=== PATIENT | male | born 1960 | race Caucasian/White ===

== ENCOUNTER 2016-12-17 12:55 | Emergency (ER) | payer MEDICAID ==
[~2016-12-17] VITALS: Ht 185.4 cm; Wt 72.7 kg
[2016-12-17 13:41] LABS: BASOPHILS # (AUTO) 0.03 K/uL (0.00-0.20); BASOPHILS % (AUTO) 0.7 % (0.0-2.0); EOSINOPHILS # (AUTO) 0.11 K/uL (0.00-0.70); EOSINOPHILS % (AUTO) 2.56 % (1.0-6.0); HEMATOCRIT 41.9 % (41-53); LYMPHOCYTES # (AUTO) 1.5 K/uL (1.0-4.8); LYMPHOCYTES % (AUTO) 35.7 % (22.0-44.0); MEAN CORPUSCULAR HEMOGLOBIN 29.1 pg (26.0-34.0); MEAN CORPUSCULAR HGB CONC 33.5 G/dL (31.0-37.0); MEAN CORPUSCULAR VOLUME 87 fL (80-100); MONOCYTES # (AUTO) 0.4 K/uL (0.1-1.0); MONOCYTES % (AUTO) 9.5 % (2.0-9.0); NEUTROPHILS # (AUTO) 2.2 K/uL (1.8-7.7); NEUTROPHILS % (AUTO) 51.6 % (40.0-70.0); PLATELET COUNT (AUTO) 172 K/uL (150-450); RED BLOOD CELL COUNT(AUTO) 4.82 MIL/uL (4.50-5.90); RED CELL DISTRIBUTION WIDTH 16.1 % (11.5-14.5); WHITE BLOOD COUNT (AUTO) 4.2 K/uL (4.5-11.0)
[2016-12-17 13:55] LABS: ANION GAP 11 mmol/L (8-16); CALCIUM, TOTAL 8.9 mg/dL (8.8-10.5); CARBON DIOXIDE 26 mmol/L (22-29); CHLORIDE 106 mmol/L (98-107); CREATININE 0.88 mg/dL (0.60-1.30); GLOMERULAR FILTR. RATE CALC > 60 mL/min (>60); POTASSIUM 3.7 mmol/L (3.5-5.1); SODIUM SERUM 143 mmol/L (136-145); UREA NITROGEN, BLOOD 16 mg/dL (7-18)
[2016-12-17 14:01] LABS: ALANINE AMINOTRANSFERASE 19 U/L (12-78); ALBUMIN 3.8 g/dL (3.4-5.0); ASPARTATE AMINOTRANSFERASE 23 U/L (15-37); BILIRUBIN,TOTAL 0.5 mg/dL (0.1-1.0); TOTAL PROTEIN, SERUM 7.4 g/dL (6.4-8.2)
[2016-12-17] MEDS ORDERED: ONDANSETRON HCL 4 MG TABLET PO ONE (14:30)
[2016-12-17] MEDS ORDERED: CloNIDine HCL 0.2 MG TABLET PO ONE (14:30)
[2016-12-17 17:17] VITALS: BP 127/88
== END 2016-12-17 17:32 | disposition home or self-care (01) ==
LOC: EMS 12:56 → EEVIPCON 12:56 → EMS 17:32
DX: F32.9 Major depressive disorder, single episode, unspecified (principal); I10 Essential (primary) hypertension; F11.90 Opioid use, unspecified, uncomplicated; F15.90 Other stimulant use, unspecified, uncomplicated; F17.210 Nicotine dependence, cigarettes, uncomplicated
CPT/HCPCS: 36415; 80053; 85025; 99284; G0480; Q0162

== ENCOUNTER 2016-12-24 15:57 | Emergency (ER) | payer MEDICAID ==
[~2016-12-24] VITALS: Ht 185.4 cm; Wt 75.0 kg
[2016-12-24] MEDS ORDERED: BUPR1FIL SL (16:29)
[2016-12-24 20:03] VITALS: BP 129/77
== END 2016-12-24 20:33 | disposition home or self-care (01) ==
LOC: EMS 16:00
DX: F11.10 Opioid abuse, uncomplicated (principal); F15.10 Other stimulant abuse, uncomplicated; I10 Essential (primary) hypertension; F17.210 Nicotine dependence, cigarettes, uncomplicated; Z59.0 Homelessness; Z86.14 Personal history of Methicillin resistant Staphylococcus aureus infection
CPT/HCPCS: 36415; 99283; 99406; G0480

== ENCOUNTER 2016-12-31 19:01 | Emergency (ER) | payer MEDICAID ==
[~2016-12-31 19:01] MED LIST: BUPR1FIL SL
== END 2016-12-31 20:32 | disposition left against medical advice (07) ==
LOC: EMS 19:04
DX: R69 Illness, unspecified (principal); I10 Essential (primary) hypertension; F17.210 Nicotine dependence, cigarettes, uncomplicated; F11.90 Opioid use, unspecified, uncomplicated; F19.90 Other psychoactive substance use, unspecified, uncomplicated; Z53.21 Procedure and treatment not carried out due to patient leaving prior to being seen by health care provider

== ENCOUNTER 2017-01-09 22:06 | Inpatient (IN) | payer MEDICAID ==
[~2017-01-09] VITALS: Ht 182.9 cm; Wt 72.6 kg
[2017-01-10 00:43] LABS: BASOPHILS % (AUTO) 0.2 % (0.0-2.0); EOSINOPHILS % (AUTO) 0.6 % (1.0-6.0); HEMATOCRIT 42.3 % (41-53); HEMOGLOBIN 13.5 g/dL (13.5-17.5); LYMPHOCYTES # (AUTO) 0.8 K/uL (1.0-4.8); LYMPHOCYTES % (AUTO) 16.9 % (22.0-44.0); MEAN CORPUSCULAR HEMOGLOBIN 27.9 pg (26.0-34.0); MEAN CORPUSCULAR VOLUME 87 fL (80-100); MONOCYTES # (AUTO) 0.8 K/uL (0.1-1.0); MONOCYTES % (AUTO) 16.6 % (2.0-9.0); NEUTROPHILS % (AUTO) 65.7 % (40.0-70.0); PLATELET COUNT (AUTO) 213 K/uL (150-450); RED BLOOD CELL COUNT(AUTO) 4.86 MIL/uL (4.50-5.90); RED CELL DISTRIBUTION WIDTH 15.9 % (11.5-14.5); WHITE BLOOD COUNT (AUTO) 4.6 K/uL (4.5-11.0)
[2017-01-10 01:06] LABS: ANION GAP 6 mmol/L (8-16); CALCIUM, TOTAL 8.2 mg/dL (8.8-10.5); CARBON DIOXIDE 29 mmol/L (22-29); CHLORIDE 102 mmol/L (98-107); GLOMERULAR FILTR. RATE CALC > 60 mL/min (>60); SODIUM SERUM 137 mmol/L (136-145); UREA NITROGEN, BLOOD 9 mg/dL (7-18)
[2017-01-10 01:11] LABS: ALANINE AMINOTRANSFERASE 783 U/L (12-78); ASPARTATE AMINOTRANSFERASE 800 U/L (15-37); BILIRUBIN,TOTAL 1.6 mg/dL (0.1-1.0); TOTAL PROTEIN, SERUM 6.9 g/dL (6.4-8.2)
[2017-01-10 01:15] LABS: APPEARANCE,URINE CLEAR (CLEAR); GLUCOSE, URINE (UA) NEGATIVE (NEGATIVE); KETONES,URINE NEGATIVE (NEGATIVE); LEUKOCYTE ESTERASE ,URINE NEGATIVE (NEGATIVE); OCCULT BLOOD,URINE NEGATIVE (NEGATIVE); PH,URINE 6.5 (5.0-8.0); PROTEIN,URINE NEGATIVE (NEGATIVE)
[2017-01-10 01:49] LABS: RBC,URINE None Seen /HPF (0-2); WBC,URINE None Seen /HPF (0-5)
[2017-01-10] MEDS ORDERED: ONDANSETRON HCL 4 MG/2 ML VIAL IVP PRN ×2 (03:45→13:30)
[2017-01-10] MEDS ORDERED: 0.9% SODIUM CHLORIDE 10 ML SYRINGE IVP PRN ×2 (03:45→13:30)
[2017-01-10] MEDS ORDERED: ACETAMINOPHEN 325 MG TABLET PO PRN (03:45)
[2017-01-10 05:56] VITALS: BP 127/74
[2017-01-10 07:23] VITALS: BP 108/71
[2017-01-10] MEDS ORDERED: PNEUMOCOCCAL VACCINE POLYVALENT 0.5 ML VIAL [PPSV23] IM ONE (07:45)
[2017-01-10 11:40] VITALS: BP 116/74
[2017-01-10] MEDS: HYDROCODONE/ACETAMINOPHEN 5-325 MG TABLET PO PRN ×2 (13:42→19:35)
[2017-01-10 15:08] LABS: ANION GAP 8 mmol/L (8-16); CALCIUM, TOTAL 7.9 mg/dL (8.8-10.5); CARBON DIOXIDE 29 mmol/L (22-29); CHLORIDE 101 mmol/L (98-107); CREATININE 0.92 mg/dL (0.60-1.30); GLOMERULAR FILTR. RATE CALC > 60 mL/min (>60); POTASSIUM 3.3 mmol/L (3.5-5.1); SODIUM SERUM 138 mmol/L (136-145); UREA NITROGEN, BLOOD 8 mg/dL (7-18)
[2017-01-10 16:01] VITALS: BP 121/78
[2017-01-10] MEDS: DEXTROSE 5%-0.45% SODIUM CHL 1,000 ML IV SCH ×2 (17:22→21:30)
[2017-01-10 20:09] VITALS: BP 106/66
[2017-01-11] VITALS (7 sets, daily range): BP systolic 112–139; BP diastolic 69–98
[2017-01-11] MEDS: HYDROCODONE/ACETAMINOPHEN 5-325 MG TABLET PO PRN ×4 (02:57→19:52)
[2017-01-11] MEDS: DEXTROSE 5%-0.45% SODIUM CHL 1,000 ML IV SCH ×2 (02:59→05:30)
[2017-01-11 06:28] LABS: BASOPHILS % (AUTO) 0.5 % (0.0-2.0); EOSINOPHILS % (AUTO) 0.6 % (1.0-6.0); HEMATOCRIT 42.5 % (41-53); HEMOGLOBIN 13.6 g/dL (13.5-17.5); LYMPHOCYTES # (AUTO) 0.9 K/uL (1.0-4.8); LYMPHOCYTES % (AUTO) 18.2 % (22.0-44.0); MEAN CORPUSCULAR HEMOGLOBIN 27.7 pg (26.0-34.0); MEAN CORPUSCULAR VOLUME 87 fL (80-100); MONOCYTES # (AUTO) 0.8 K/uL (0.1-1.0); MONOCYTES % (AUTO) 15.7 % (2.0-9.0); NEUTROPHILS # (AUTO) 3.3 K/uL (1.8-7.7); PLATELET COUNT (AUTO) 241 K/uL (150-450); RED BLOOD CELL COUNT(AUTO) 4.91 MIL/uL (4.50-5.90); RED CELL DISTRIBUTION WIDTH 16.4 % (11.5-14.5); WHITE BLOOD COUNT (AUTO) 5.1 K/uL (4.5-11.0)
[2017-01-11 07:08] LABS: ALANINE AMINOTRANSFERASE 904 U/L (12-78); ALBUMIN 2.9 g/dL (3.4-5.0); ANION GAP 7 mmol/L (8-16); ASPARTATE AMINOTRANSFERASE 781 U/L (15-37); BILIRUBIN,TOTAL 2.1 mg/dL (0.1-1.0); CALCIUM, TOTAL 8.4 mg/dL (8.8-10.5); CARBON DIOXIDE 28 mmol/L (22-29); CHLORIDE 105 mmol/L (98-107); CREATININE 0.85 mg/dL (0.60-1.30); GLOMERULAR FILTR. RATE CALC > 60 mL/min (>60); POTASSIUM 3.7 mmol/L (3.5-5.1); SODIUM SERUM 140 mmol/L (136-145); UREA NITROGEN, BLOOD 7 mg/dL (7-18)
[2017-01-11 10:34] LABS: ERYTHROCYTE SEDIMENTATION RATE 30 MM/HR (0-15)
[2017-01-12] MEDS: HYDROCODONE/ACETAMINOPHEN 5-325 MG TABLET PO PRN ×4 (01:43→20:35)
[2017-01-12 05:16] VITALS: BP 121/73
[2017-01-12] MEDS: DEXTROSE 5%-0.45% SODIUM CHL 1,000 ML IV SCH ×3 (05:30→21:30)
[2017-01-12 06:59] LABS: ALANINE AMINOTRANSFERASE 990 U/L (12-78); ALBUMIN 2.6 g/dL (3.4-5.0); ANION GAP 9 mmol/L (8-16); ASPARTATE AMINOTRANSFERASE 798 U/L (15-37); CARBON DIOXIDE 24 mmol/L (22-29); CHLORIDE 105 mmol/L (98-107); CREATININE 0.75 mg/dL (0.60-1.30); GLOMERULAR FILTR. RATE CALC > 60 mL/min (>60); POTASSIUM 3.8 mmol/L (3.5-5.1); SODIUM SERUM 138 mmol/L (136-145); TOTAL PROTEIN, SERUM 6.4 g/dL (6.4-8.2); UREA NITROGEN, BLOOD 6 mg/dL (7-18)
[2017-01-12 07:10] VITALS: BP 123/78
[2017-01-12 11:37] VITALS: BP 125/78
[2017-01-12 15:12] VITALS: BP 120/76
[2017-01-12 19:36] VITALS: BP 114/70
[2017-01-12 23:45] VITALS: BP 102/56
[2017-01-13] MEDS: HYDROCODONE/ACETAMINOPHEN 5-325 MG TABLET PO PRN ×2 (02:25→08:06)
[2017-01-13 04:45] VITALS: BP 110/68
[2017-01-13] MEDS: DEXTROSE 5%-0.45% SODIUM CHL 1,000 ML IV SCH ×3 (05:30→21:30)
[2017-01-13 06:57] LABS: ALBUMIN 2.6 g/dL (3.4-5.0); ANION GAP 10 mmol/L (8-16); BILIRUBIN,TOTAL 3.9 mg/dL (0.1-1.0); CALCIUM, TOTAL 8.2 mg/dL (8.8-10.5); CARBON DIOXIDE 23 mmol/L (22-29); CHLORIDE 104 mmol/L (98-107); CREATININE 0.79 mg/dL (0.60-1.30); GLOMERULAR FILTR. RATE CALC > 60 mL/min (>60); POTASSIUM 3.7 mmol/L (3.5-5.1); SODIUM SERUM 137 mmol/L (136-145); TOTAL PROTEIN, SERUM 6.7 g/dL (6.4-8.2); UREA NITROGEN, BLOOD 11 mg/dL (7-18)
[2017-01-13 07:24] VITALS: BP 110/72
[2017-01-13 08:13] LABS: ALANINE AMINOTRANSFERASE 1213 U/L (12-78); ASPARTATE AMINOTRANSFERASE 1124 U/L (15-37)
[2017-01-13 09:06] LABS: INR 1.2 (0.9-1.1); PROTHROMBIN TIME 13.1 SEC (9.4-11.6)
[2017-01-13] MEDS: OxyCODONE HCL 5 MG IR TABLET PO PRN ×3 (10:54→22:23)
[2017-01-13 11:38] VITALS: BP 127/73
[2017-01-13 15:23] VITALS: BP 100/55
[2017-01-13 20:00] VITALS: BP 105/59
[2017-01-13 23:38] VITALS: BP 107/60
[2017-01-14 04:40] VITALS: BP 106/71
[2017-01-14] MEDS: OxyCODONE HCL 5 MG IR TABLET PO PRN ×4 (04:44→22:37)
[2017-01-14] MEDS: DEXTROSE 5%-0.45% SODIUM CHL 1,000 ML IV SCH ×3 (05:30→21:30)
[2017-01-14 06:18] LABS: EOSINOPHILS # (AUTO) 0.03 K/uL (0.00-0.70); EOSINOPHILS % (AUTO) 0.56 % (1.0-6.0); HEMATOCRIT 39.6 % (41-53); HEMOGLOBIN 13.3 g/dL (13.5-17.5); LYMPHOCYTES # (AUTO) 1.2 K/uL (1.0-4.8); LYMPHOCYTES % (AUTO) 22.1 % (22.0-44.0); MEAN CORPUSCULAR HEMOGLOBIN 28.1 pg (26.0-34.0); MEAN CORPUSCULAR HGB CONC 33.6 G/dL (31.0-37.0); MEAN CORPUSCULAR VOLUME 84 fL (80-100); MONOCYTES # (AUTO) 0.8 K/uL (0.1-1.0); MONOCYTES % (AUTO) 13.8 % (2.0-9.0); NEUTROPHILS # (AUTO) 3.6 K/uL (1.8-7.7); NEUTROPHILS % (AUTO) 63.5 % (40.0-70.0); PLATELET COUNT (AUTO) 202 K/uL (150-450); RED BLOOD CELL COUNT(AUTO) 4.73 MIL/uL (4.50-5.90); RED CELL DISTRIBUTION WIDTH 16.2 % (11.5-14.5); WHITE BLOOD COUNT (AUTO) 5.6 K/uL (4.5-11.0)
[2017-01-14 06:23] LABS: INR 1.2 (0.9-1.1); PROTHROMBIN TIME 13.1 SEC (9.4-11.6)
[2017-01-14 06:41] LABS: ALANINE AMINOTRANSFERASE 1496 U/L (12-78); ALBUMIN 2.5 g/dL (3.4-5.0); ANION GAP 7 mmol/L (8-16); BILIRUBIN,TOTAL 4.1 mg/dL (0.1-1.0); CALCIUM, TOTAL 8.1 mg/dL (8.8-10.5); CARBON DIOXIDE 26 mmol/L (22-29); CHLORIDE 100 mmol/L (98-107); GLOMERULAR FILTR. RATE CALC > 60 mL/min (>60); POTASSIUM 4.1 mmol/L (3.5-5.1); SODIUM SERUM 133 mmol/L (136-145); TOTAL PROTEIN, SERUM 6.6 g/dL (6.4-8.2); UREA NITROGEN, BLOOD 13 mg/dL (7-18)
[2017-01-14 06:48] LABS: ASPARTATE AMINOTRANSFERASE 1429 U/L (15-37)
[2017-01-14 07:13] VITALS: BP 101/55
[2017-01-14 11:19] VITALS: BP 122/78
[2017-01-14 15:35] VITALS: BP 103/68
[2017-01-14 19:57] VITALS: BP 109/69
[2017-01-14 23:35] VITALS: BP 104/70
[2017-01-15] MEDS: OxyCODONE HCL 5 MG IR TABLET PO PRN ×4 (04:45→23:51)
[2017-01-15] MEDS: DEXTROSE 5%-0.45% SODIUM CHL 1,000 ML IV SCH (05:30)
[2017-01-15 07:14] LABS: ALBUMIN 2.6 g/dL (3.4-5.0); ANION GAP 6 mmol/L (8-16); BILIRUBIN,TOTAL 5.3 mg/dL (0.1-1.0); CALCIUM, TOTAL 8.4 mg/dL (8.8-10.5); CARBON DIOXIDE 27 mmol/L (22-29); CHLORIDE 102 mmol/L (98-107); CREATININE 0.87 mg/dL (0.60-1.30); GLOMERULAR FILTR. RATE CALC > 60 mL/min (>60); POTASSIUM 4.4 mmol/L (3.5-5.1); SODIUM SERUM 135 mmol/L (136-145); TOTAL PROTEIN, SERUM 6.9 g/dL (6.4-8.2); UREA NITROGEN, BLOOD 13 mg/dL (7-18)
[2017-01-15 07:27] VITALS: BP 111/69
[2017-01-15 08:03] LABS: ALANINE AMINOTRANSFERASE 1666 U/L (12-78); ASPARTATE AMINOTRANSFERASE 1428 U/L (15-37)
[2017-01-15 11:36] VITALS: BP 119/72
[2017-01-15 14:11] LABS: HEPATITIS Bs ANTIGEN SCREEN P Confirm. indicated (Negative); HEPATITIS C AB SCREEN 0.2 s/co ratio (0.0-0.9)
[2017-01-15 15:31] VITALS: BP 123/78
[2017-01-15] MEDS: LORazepam 1 MG TABLET PO PRN ×2 (16:49→23:56)
[2017-01-15 19:26] VITALS: BP 109/68
[2017-01-15 23:18] VITALS: BP 100/62
[2017-01-16 04:21] VITALS: BP 95/57
[2017-01-16] MEDS: OxyCODONE HCL 5 MG IR TABLET PO PRN ×4 (05:38→23:38)
[2017-01-16 06:26] LABS: INR 1.2 (0.9-1.1); PROTHROMBIN TIME 12.3 SEC (9.4-11.6)
[2017-01-16 07:01] LABS: ALANINE AMINOTRANSFERASE 1684 U/L (12-78); ALBUMIN 2.5 g/dL (3.4-5.0); ANION GAP 8 mmol/L (8-16); BILIRUBIN,TOTAL 5.2 mg/dL (0.1-1.0); CALCIUM, TOTAL 8.2 mg/dL (8.8-10.5); CARBON DIOXIDE 26 mmol/L (22-29); CHLORIDE 101 mmol/L (98-107); GLOMERULAR FILTR. RATE CALC > 60 mL/min (>60); POTASSIUM 4.3 mmol/L (3.5-5.1); SODIUM SERUM 135 mmol/L (136-145); TOTAL PROTEIN, SERUM 6.8 g/dL (6.4-8.2); UREA NITROGEN, BLOOD 15 mg/dL (7-18)
[2017-01-16 07:04] LABS: ASPARTATE AMINOTRANSFERASE 1359 U/L (15-37)
[2017-01-16 07:15] VITALS: BP 107/73
[2017-01-16] MEDS: LORazepam 1 MG TABLET PO PRN ×3 (08:23→20:05)
[2017-01-16 11:00] VITALS: BP 110/75
[2017-01-16 15:26] VITALS: BP 105/75
[2017-01-16 19:10] VITALS: BP 122/61
[2017-01-16 23:37] VITALS: BP 115/74
[2017-01-17] MEDS: LORazepam 1 MG TABLET PO PRN ×4 (02:16→20:03)
[2017-01-17 05:36] VITALS: BP 100/71
[2017-01-17] MEDS: OxyCODONE HCL 5 MG IR TABLET PO PRN ×4 (05:43→23:58)
[2017-01-17 07:26] LABS: ALANINE AMINOTRANSFERASE 1548 U/L (12-78); ALBUMIN 2.7 g/dL (3.4-5.0); ANION GAP 5 mmol/L (8-16); BILIRUBIN,TOTAL 5.8 mg/dL (0.1-1.0); CALCIUM, TOTAL 8.6 mg/dL (8.8-10.5); CARBON DIOXIDE 28 mmol/L (22-29); CHLORIDE 101 mmol/L (98-107); CREATININE 0.85 mg/dL (0.60-1.30); GLOMERULAR FILTR. RATE CALC > 60 mL/min (>60); POTASSIUM 4.3 mmol/L (3.5-5.1); SODIUM SERUM 134 mmol/L (136-145); TOTAL PROTEIN, SERUM 7.3 g/dL (6.4-8.2); UREA NITROGEN, BLOOD 14 mg/dL (7-18)
[2017-01-17 07:28] VITALS: BP 109/74
[2017-01-17 07:28] LABS: ASPARTATE AMINOTRANSFERASE 1023 U/L (15-37)
[2017-01-17 11:13] VITALS: BP 107/66
[2017-01-17 14:18] LABS: HEPATITIS Bs ANTIGEN SCREEN P Confirm. indicated (Negative); HEPATITIS C AB SCREEN 0.2 s/co ratio (0.0-0.9)
[2017-01-17 15:26] VITALS: BP 103/61
[2017-01-17 17:19] LABS: HBV DNA QNT IU/ML 50 IU/mL
[2017-01-17 20:16] VITALS: BP 119/71
[2017-01-17 23:44] VITALS: BP 123/76
[2017-01-18] MEDS: LORazepam 1 MG TABLET PO PRN ×2 (02:28→08:38)
[2017-01-18 05:06] VITALS: BP 105/72
[2017-01-18] MEDS: OxyCODONE HCL 5 MG IR TABLET PO PRN ×2 (05:22→11:23)
[2017-01-18] MEDS: DEXTROSE 5%-0.45% SODIUM CHL 1,000 ML IV SCH (05:30)
[2017-01-18 07:49] VITALS: BP 119/77
[2017-01-18 08:07] LABS: ALANINE AMINOTRANSFERASE 1100 U/L (12-78); ALBUMIN 2.5 g/dL (3.4-5.0); ANION GAP 10 mmol/L (8-16); ASPARTATE AMINOTRANSFERASE 477 U/L (15-37); CALCIUM, TOTAL 7.9 mg/dL (8.8-10.5); CARBON DIOXIDE 23 mmol/L (22-29); CHLORIDE 100 mmol/L (98-107); CREATININE 0.75 mg/dL (0.60-1.30); GLOMERULAR FILTR. RATE CALC > 60 mL/min (>60); SODIUM SERUM 133 mmol/L (136-145); TOTAL PROTEIN, SERUM 6.9 g/dL (6.4-8.2); UREA NITROGEN, BLOOD 14 mg/dL (7-18)
[2017-01-18 11:42] VITALS: BP 103/83
== END 2017-01-18 12:10 | disposition home or self-care (01) ==
LOC: EMS 22:07 → 6N 01-10 05:30
PROVIDERS: ADMIT Internal Medicine; ATTEND Family Medicine
DX: B15.9 Hepatitis A without hepatic coma (principal); E44.1 Mild protein-calorie malnutrition; I10 Essential (primary) hypertension; G89.29 Other chronic pain; M54.5 Low back pain; F41.9 Anxiety disorder, unspecified; F11.10 Opioid abuse, uncomplicated; F15.10 Other stimulant abuse, uncomplicated; F17.200 Nicotine dependence, unspecified, uncomplicated; F10.10 Alcohol abuse, uncomplicated; J06.9 Acute upper respiratory infection, unspecified; Z59.0 Homelessness; Z79.899 Other long term (current) drug therapy; Z68.21 Body mass index [BMI] 21.0-21.9, adult; Z71.51 Drug abuse counseling and surveillance of drug abuser; Z86.14 Personal history of Methicillin resistant Staphylococcus aureus infection
CPT/HCPCS: 76705; 80074; 83735; 85651; 87081; 87517; 99285

== ENCOUNTER 2017-01-19 22:05 | Emergency (ER) | payer MEDICAID ==
[~2017-01-19] VITALS: Ht 180.3 cm; Wt 75.0 kg
[2017-01-19 23:52] LABS: BASOPHILS % (AUTO) 0.3 % (0.0-2.0); HEMATOCRIT 36.6 % (41-53); HEMOGLOBIN 12.1 g/dL (13.5-17.5); LYMPHOCYTES # (AUTO) 3.1 K/uL (1.0-4.8); LYMPHOCYTES % (AUTO) 41.7 % (22.0-44.0); MEAN CORPUSCULAR HEMOGLOBIN 27.4 pg (26.0-34.0); MEAN CORPUSCULAR HGB CONC 32.9 G/dL (31.0-37.0); MEAN CORPUSCULAR VOLUME 83 fL (80-100); MONOCYTES # (AUTO) 0.6 K/uL (0.1-1.0); MONOCYTES % (AUTO) 7.8 % (2.0-9.0); NEUTROPHILS # (AUTO) 3.5 K/uL (1.8-7.7); NEUTROPHILS % (AUTO) 48.2 % (40.0-70.0); PLATELET COUNT (AUTO) 230 K/uL (150-450); RED BLOOD CELL COUNT(AUTO) 4.39 MIL/uL (4.50-5.90); RED CELL DISTRIBUTION WIDTH 17.5 % (11.5-14.5); WHITE BLOOD COUNT (AUTO) 7.4 K/uL (4.5-11.0)
[2017-01-20 00:09] LABS: ANION GAP 8 mmol/L (8-16); CALCIUM, TOTAL 8.1 mg/dL (8.8-10.5); CARBON DIOXIDE 27 mmol/L (22-29); CHLORIDE 101 mmol/L (98-107); GLOMERULAR FILTR. RATE CALC > 60 mL/min (>60); POTASSIUM 3.5 mmol/L (3.5-5.1); SODIUM SERUM 136 mmol/L (136-145); UREA NITROGEN, BLOOD 14 mg/dL (7-18)
[2017-01-20 00:15] LABS: ALANINE AMINOTRANSFERASE 626 U/L (12-78); ALBUMIN 2.6 g/dL (3.4-5.0); ASPARTATE AMINOTRANSFERASE 157 U/L (15-37); BILIRUBIN,TOTAL 3.5 mg/dL (0.1-1.0)
[2017-01-20 01:15] LABS: APPEARANCE,URINE CLOUDY (CLEAR); GLUCOSE, URINE (UA) NEGATIVE (NEGATIVE); KETONES,URINE NEGATIVE (NEGATIVE); LEUKOCYTE ESTERASE ,URINE NEGATIVE (NEGATIVE); OCCULT BLOOD,URINE NEGATIVE (NEGATIVE); PH,URINE 5.5 (5.0-8.0); PROTEIN,URINE NEGATIVE (NEGATIVE)
[2017-01-20 01:19] LABS: ADD UA MICROSCOPIC NO
[2017-01-20] MEDS: KETOROLAC TROMETHAMINE 60 MG/2 ML VIAL IM ONE ×2 (02:37→02:39)
[2017-01-20 02:56] VITALS: BP 139/88
== END 2017-01-20 02:59 | disposition home or self-care (01) ==
LOC: EMS 22:07
DX: F19.10 Other psychoactive substance abuse, uncomplicated (principal); B15.9 Hepatitis A without hepatic coma; B19.10 Unspecified viral hepatitis B without hepatic coma; K85.90 Acute pancreatitis without necrosis or infection, unspecified; F17.210 Nicotine dependence, cigarettes, uncomplicated; I10 Essential (primary) hypertension
CPT/HCPCS: 36415; 80053; 80307; 81003; 83690; 85025; 99284; 99406; J1885

== ENCOUNTER 2017-02-12 02:47 | Emergency (ER) | payer MEDICAID ==
[~2017-02-12] VITALS: Ht 182.9 cm; Wt 73.0 kg
[2017-02-12 03:31] LABS: EOSINOPHILS # (AUTO) 0.01 K/uL (0.00-0.70); EOSINOPHILS % (AUTO) 0.11 % (1.0-6.0); HEMATOCRIT 36.9 % (41-53); HEMOGLOBIN 12.3 g/dL (13.5-17.5); LYMPHOCYTES # (AUTO) 0.4 K/uL (1.0-4.8); LYMPHOCYTES % (AUTO) 5.4 % (22.0-44.0); MEAN CORPUSCULAR HEMOGLOBIN 29.9 pg (26.0-34.0); MEAN CORPUSCULAR HGB CONC 33.5 G/dL (31.0-37.0); MEAN CORPUSCULAR VOLUME 89 fL (80-100); MONOCYTES # (AUTO) 1.3 K/uL (0.1-1.0); MONOCYTES % (AUTO) 17.2 % (2.0-9.0); NEUTROPHILS # (AUTO) 5.7 K/uL (1.8-7.7); NEUTROPHILS % (AUTO) 77.3 % (40.0-70.0); PLATELET COUNT (AUTO) 179 K/uL (150-450); RED BLOOD CELL COUNT(AUTO) 4.12 MIL/uL (4.50-5.90); RED CELL DISTRIBUTION WIDTH 19.2 % (11.5-14.5); WHITE BLOOD COUNT (AUTO) 7.3 K/uL (4.5-11.0)
[2017-02-12 03:38] LABS: ANION GAP 5 mmol/L (8-16); CALCIUM, TOTAL 8.8 mg/dL (8.8-10.5); CARBON DIOXIDE 32 mmol/L (22-29); CHLORIDE 99 mmol/L (98-107); CREATININE 0.85 mg/dL (0.60-1.30); GLOMERULAR FILTR. RATE CALC > 60 mL/min (>60); POTASSIUM 3.8 mmol/L (3.5-5.1); SODIUM SERUM 136 mmol/L (136-145); UREA NITROGEN, BLOOD 15 mg/dL (7-18)
[2017-02-12 03:44] LABS: ALANINE AMINOTRANSFERASE 273 U/L (12-78); ALBUMIN 3.7 g/dL (3.4-5.0); ASPARTATE AMINOTRANSFERASE 194 U/L (15-37); BILIRUBIN,TOTAL 1.4 mg/dL (0.1-1.0)
[2017-02-12 04:53] VITALS: BP 110/78
== END 2017-02-12 04:54 | disposition home or self-care (01) ==
LOC: EMS 02:50
DX: K75.9 Inflammatory liver disease, unspecified (principal); I10 Essential (primary) hypertension; F11.90 Opioid use, unspecified, uncomplicated; F15.90 Other stimulant use, unspecified, uncomplicated; F17.210 Nicotine dependence, cigarettes, uncomplicated
CPT/HCPCS: 99284; G0480

== ENCOUNTER 2017-09-24 00:42 | Emergency (ER) | payer MEDICAID ==
[~2017-09-24] VITALS: Ht 182.9 cm; Wt 65.9 kg
[2017-09-24] MEDS ORDERED: CEPHALEXIN MONOHYDRATE 500 MG CAPSULE PO ONE (03:45)
[2017-09-24] MEDS ORDERED: DOXYCYCLINE 100 MG CAPSULE PO ONE (03:45)
[2017-09-24] MEDS ORDERED: BUPIVACAINE HCL/PF 0.25% 10 ML VIAL INJ ONE (03:45)
[2017-09-24 04:29] VITALS: BP 136/79
== END 2017-09-24 04:30 | disposition home or self-care (01) ==
LOC: EMS 00:44
DX: L02.416 Cutaneous abscess of left lower limb (principal); I10 Essential (primary) hypertension; F17.210 Nicotine dependence, cigarettes, uncomplicated; F11.10 Opioid abuse, uncomplicated; Z59.0 Homelessness
CPT/HCPCS: 10060; 99283; 99406; J3490

== ENCOUNTER 2018-06-04 08:19 | Emergency (ER) | payer MEDICAID ==
[~2018-06-04] VITALS: Ht 180.3 cm; Wt 68.2 kg
[2018-06-04 08:51] VITALS: BP 158/98
== END 2018-06-04 08:55 | disposition home or self-care (01) ==
LOC: EMS 08:21
DX: L02.31 Cutaneous abscess of buttock (principal); R11.0 Nausea; M79.10 Myalgia, unspecified site; I10 Essential (primary) hypertension; F11.90 Opioid use, unspecified, uncomplicated; F15.90 Other stimulant use, unspecified, uncomplicated; F17.210 Nicotine dependence, cigarettes, uncomplicated; Z59.0 Homelessness
CPT/HCPCS: 99283; 99406

== ENCOUNTER 2018-07-03 07:48 | Emergency (ER) | payer MEDICAID ==
[~2018-07-03] VITALS: Ht 177.8 cm; Wt 75.0 kg
[2018-07-03] MEDS ORDERED: SODIUM CHLORIDE 0.9% 1,000 ML IV ONE ×2 (08:15→11:00)
[2018-07-03] MEDS ORDERED: ONDANSETRON HCL 4 MG/2 ML VIAL IVP ONE (08:15)
[2018-07-03] MEDS ORDERED: KETOROLAC TROMETHAMINE 30 MG/ML VIAL IVP ONE (08:15)
[2018-07-03 09:01] LABS: BASOPHILS % (AUTO) 0.4 % (0.0-2.0); EOSINOPHILS % (AUTO) 0.7 % (1.0-6.0); HEMATOCRIT 42.3 % (41-53); HEMOGLOBIN 14.3 g/dL (13.5-17.5); LYMPHOCYTES # (AUTO) 0.6 K/uL (1.0-4.8); LYMPHOCYTES % (AUTO) 7.5 % (22.0-44.0); MEAN CORPUSCULAR HEMOGLOBIN 29.1 pg (26.0-34.0); MEAN CORPUSCULAR HGB CONC 33.9 G/dL (31.0-37.0); MEAN CORPUSCULAR VOLUME 86 fL (80-100); MONOCYTES # (AUTO) 0.5 K/uL (0.1-1.0); MONOCYTES % (AUTO) 5.8 % (2.0-9.0); NEUTROPHILS # (AUTO) 6.8 K/uL (1.8-7.7); PLATELET COUNT (AUTO) 162 K/uL (150-450); RED BLOOD CELL COUNT(AUTO) 4.93 MIL/uL (4.50-5.90); RED CELL DISTRIBUTION WIDTH 16.6 % (11.5-14.5)
[2018-07-03 09:02] LABS: NEUTROPHILS % (AUTO) 85.6 % (40.0-70.0)
[2018-07-03 09:17] LABS: ANION GAP 8 mmol/L (8-16); CALCIUM, TOTAL 8.6 mg/dL (8.8-10.5); CARBON DIOXIDE 28 mmol/L (22-29); CHLORIDE 107 mmol/L (98-107); GLOMERULAR FILTR. RATE CALC > 60 mL/min (>60); GLUCOSE,RANDOM 179 mg/dL (70-110); POTASSIUM 3.7 mmol/L (3.5-5.1); SODIUM SERUM 143 mmol/L (136-145); UREA NITROGEN, BLOOD 14 mg/dL (7-18)
[2018-07-03 13:37] VITALS: BP 122/80
== END 2018-07-03 13:58 | disposition home or self-care (01) ==
LOC: EMS 07:48
DX: T40.1X1A Poisoning by heroin, accidental (unintentional), initial encounter (principal); R11.2 Nausea with vomiting, unspecified; M54.2 Cervicalgia; I10 Essential (primary) hypertension; F17.210 Nicotine dependence, cigarettes, uncomplicated; F19.90 Other psychoactive substance use, unspecified, uncomplicated; Z59.0 Homelessness; Y92.89 Other specified places as the place of occurrence of the external cause
CPT/HCPCS: 36415; 70450; 72125; 80048; 82962; 85025; 96361; 96374; 96375; 99285; J1885; J2405; J7030